=== PATIENT | female | born 1945 | race Hispanic/Latino ===

== ENCOUNTER 2018-03-05 19:33 | Emergency (ER) | payer MEDICARE, OTHER ==
[2018-03-05] MEDS ORDERED: Morphine 2 MG/ML SYRINGE ONE (20:02)
[2018-03-05] MEDS ORDERED: Ondansetron PF 4 MG/2 ML Vial ONE (20:02)
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
[2018-03-05 20:42] LABS: Hemoglobin 11.2 g/dL (12.0-16.0); Mean Corpuscular HGB CONC 33.7 g/dL (32.0-36.0); Mean Corpuscular Hemoglobin 30.7 pg (27.0-31.0); RBC Distribution Width 13.3 % (11.5-14.5); Red Blood Cell (RBC) Count 3.66 mill/uL (4.20-5.40); White Blood Cell (WBC) Count 3.7 thou/uL (4.8-10.8)
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
[2018-03-05 21:00] LABS: #Eosinphils 0.1 thou/uL (0.0-0.7); #Lymphocytes 0.5 thou/uL (1.20-3.40); #Monocytes 0.4 thou/uL (0.11-0.59); #Neutrophils 2.8 thou/uL (1.40-6.50); %Basophils 0.8 % (0.0-1.0); %Eosinophils 1.8 % (0.0-10.0); %Lymphocytes 12.1 % (21.0-51.0); %Monocytes 10.6 % (0.0-10.0); %Neutrophils 74.7 % (42.0-75.0); Mean Platelet Volume 9.5 fL (7.4-10.4); PLT Morphology Comment Appears Decreased; Platelet Count 77 thou/uL (130-400)
[2018-03-05 21:02] LABS: ALT (SGPT) 22 U/L (8-55); AST (SGOT) 60 U/L (5-34); Albumin 3.4 g/dL (3.4-4.8); Alkaline Phosphatase 198 U/L (40-150); Anion Gap 15 mmol/L (10-20); BUN (Urea Nitrogen) 14 mg/dL (9.8-20.1); Bilirubin, Total 1.6 mg/dL (0.2-1.2); Calc. Creatinine Clearance 0 mL/min (70-130); Calcium 9.6 mg/dL (7.8-10.44); Carbon Dioxide 19 mmol/L (23-31); Chloride 100 mmol/L (98-107); Estimated GFR-MDRD 47; Globulin 3.7 g/dL (2.4-3.5); Glucose 365 mg/dL (83-110); Protein, Total 7.1 g/dL (6.0-8.3); Sodium 130 mmol/L (136-145)
[2018-03-05] MEDS ORDERED: Lidocaine 1% (PF) 30 ML VIAL ONE (21:19)
[2018-03-05] MEDS ORDERED: Triple Antibiotic Oint 1 GM Packet ONE (22:54)
== END 2018-03-05 22:38 | disposition home or self-care (01) ==
LOC: ERS 19:33
DX: S22.31XA Fracture of one rib, right side, initial encounter for closed fracture (principal); S01.81XA Laceration without foreign body of other part of head, initial encounter; S01.112A Laceration without foreign body of left eyelid and periocular area, initial encounter; E11.9 Type 2 diabetes mellitus without complications; I10 Essential (primary) hypertension; Z79.4 Long term (current) use of insulin; Z79.899 Other long term (current) drug therapy; V43.52XA Car driver injured in collision with other type car in traffic accident, initial encounter
CPT/HCPCS: 12013; 36415; 36416; 70450; 71260; 72125; 74177; 80053; 85025; 96374; 96375; G0390; J2001; J2270; J2405